=== PATIENT | male | born 1950 | race Native Hawaiian/Other Pacific Islander ===

== ENCOUNTER 2017-04-27 18:22 | Emergency (ER) | payer OTHER ==
--- NOTE | 2017-04-27 21:35 | XRay Report ---
FINAL REPORT PROCEDURE: XR RIBS UNILAT 2V RT TECHNIQUE: Unilateral rib radiographs, 2 views of the RIGHT ribs. HISTORY: RIGHT RIB PAIN COMPARISON: No prior studies are available for comparison. FINDINGS: Lungs: Normal. Pleural space: Normal. Pneumothorax: None. Bony thorax/ribs: Nondisplaced anterior 6th rib fracture IMPRESSION: Nondisplaced 6th rib fracture
--- NOTE | 2017-04-27 21:45 | XRay Report ---
FINAL REPORT PROCEDURE: XR SHOULDER 2 RT TECHNIQUE: Right shoulder radiographs including AP views in internal and external rotation and abduction. CPT 56462 HISTORY: RIGHT SHOULDER PAIN COMPARISON: No prior studies are available for comparison. FINDINGS: Fracture (s) and/or Dislocation(s): None . Joint space(s): Decreased subacromial space. Acromioclavicular spurring.. Soft tissues: Normal . Bone mineralization: Normal . Foreign bodies: None . IMPRESSION: Degenerative change. No fracture seen
[2017-04-27] MEDS ORDERED: BOOSTRIX IM ONE (22:43)
--- NOTE | 2017-04-27 22:48 | Emergency Department Report ---
Upper Extremity - HPI Chief Complaint: Fall Stated Complaint: RIB INJURY AT WORK/PAIN Time Seen by Provider: 04/27/17 22:34 Upper Extremity: Right Shoulder, Right Arm Occurred When: Today Severity: moderate Symptoms: Yes Pain with Movement, Yes Limited Range of Movement, Yes Weakness, Yes Laceration or Abrasion, No Deformity, No Numbness Other History: Patient comes into the ER today with complaints of right shoulder and right chest wall pain after he injured himself while at work today. 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 Patient does have an abrasion noted to right chest wall. Patient is unsure as to when his last tetanus shot was. ED Review of Systems ROS: Stated complaint: RIB INJURY AT WORK/PAIN Other details as noted in HPI Constitutional: denies: chills, fever Eyes: denies: eye pain, eye discharge, vision change ENT: denies: ear pain, throat pain Respiratory: denies: cough, shortness of breath, wheezing Cardiovascular: denies: chest pain, palpitations Endocrine: no symptoms reported Gastrointestinal: denies: abdominal pain, nausea, diarrhea Genitourinary: denies: urgency, dysuria Musculoskeletal: arthralgia, other (right lateral chest wall pain, right shoulder pain). denies: back pain, joint swelling Skin: other (abrasion to right posterior chest wall). denies: rash, lesions Neurological: denies: headache, weakness, paresthesias Psychiatric: denies: anxiety, depression Hematological/Lymphatic: denies: easy bleeding, easy bruising ED Past Medical Hx - Past Medical History Hx Hypertension: Yes Hx Diabetes: Yes - Surgical History Past Surgical History?: Yes Hx Open Heart Surgery: Yes - Social History Smoking Status: Never Smoker Substance Use Type: None - Medications Home Medications: Home Medications Medication Instructions Recorded Confirmed Last Taken Type Cyclobenzaprine [Flexeril] 10 mg PO BID PRN #20 tablet 04/27/17 Unknown Rx Naproxen [Naprosyn TAB] 500 mg PO BID #20 tablet 04/27/17 Unknown Rx traMADol [Ultram 50 MG tab] 50 mg PO Q4HR PRN #20 tablet 04/27/17 Unknown Rx Upper Extremity Exam - Exam General: Vital signs noted. No distress. Alert and acting appropriately. Head and Torso: Yes Chest/Lungs Abnormality (right posterior lateral chest wall pain and linear abrasion), No HEENT Abnormality, No Neck Tenderness, No Abdominal Tenderness Shoulder Exam: Yes Shoulder Tenderness, No Clavicle Tenderness, No Normal Range of Motion in Shoulder (Limited range of motion secondary to pain), No Shoulder Deformity, No AC Joint Tenderness Arm Exam: No Arm/Humerus Tenderness, No Arm Deformity Elbow: No Elbow Tenderness, No Normal Range of Motion in Elbow, No Elbow Deformity Forearm: No Forearm Tenderness, No Forearm Deformity, No Pain with Pronation, No Pain with Supination Wrist: Yes Normal ROM in Wrist, No Wrist Tenderness, No Wrist Deformity, No Snuffbox Tenderness, No Pain with Axial Thumb Compression Hand: Yes Normal ROM in Digit(s), No Hand Tenderness, No Hand Deformity, No Digit Tenderness, No Digit(s) Deformity, No Tendon Dysfunction CMS Exam: Yes Broken Skin (abrasion noted to the right posterior chest wall), Yes Normal Distal Pulses, Yes Normal Capillary Refill, Yes Normal Distal Sensation ED Course Vital Signs 04/27/17 19:47 Temperature 97.5 F L Pulse Rate 82 Respiratory 20 Rate Blood Pressure 144/93 O2 Sat by Pulse 98 Oximetry ED Medical Decision Making - Radiology Data Radiology results: report reviewed No acute fracture noted in right shoulder x-ray. X-ray of right ribs series reveals nondisplaced sixth rib fracture and no pneumothorax noted - Medical Decision Making Patient is nontoxic and hemodynamically stable. Patient was given updated tetanus immunization today in the ER. Patient placed in a sling to right arm. However for patient to orthopedics for further evaluation of shoulder and soft tissue injury. I will place patient on light duty if work will accommodate such. Patient is in agreement with treatment plan and patient is stable for discharge. Critical care attestation.: If time is entered above; I have spent that time in minutes in the direct care of this critically ill patient, excluding procedure time. ED Disposition Clinical Impression: Right shoulder pain, Right rib fracture, Abrasion of chest wall Disposition: TO HOME OR SELFCARE Is pt being admited?: No Does the pt Need Aspirin: No Condition: Good Instructions: Abrasion (ED), Rib Fracture (ED), Shoulder Sprain (ED) Prescriptions: Cyclobenzaprine [Flexeril] 10 mg PO BID PRN #20 tablet PRN Reason: Muscle Spasm Naproxen [Naprosyn TAB] 500 mg PO BID #20 tablet traMADol [Ultram 50 MG tab] 50 mg PO Q4HR PRN #20 tablet PRN Reason: Pain Referrals: PRIMARY CARE, [Primary Care Provider] - 3-5 Days DEVONTE VILLARREAL MD [Staff Physician] - 3-5 Days Forms: Work/School Release Form(ED) Time of Disposition: 22:52
[2017-04-27 23:30] VITALS: BP 176/80
== END 2017-04-27 23:26 | disposition home or self-care (01) ==
LOC: ED 18:22
DX: S22.31XA Fracture of one rib, right side, initial encounter for closed fracture (principal); S20.311A Abrasion of right front wall of thorax, initial encounter; M25.511 Pain in right shoulder; I10 Essential (primary) hypertension; E11.9 Type 2 diabetes mellitus without complications; W01.0XXA Fall on same level from slipping, tripping and stumbling without subsequent striking against object, initial encounter; Y93.89 Activity, other specified; Y92.89 Other specified places as the place of occurrence of the external cause; Y99.8 Other external cause status
CPT/HCPCS: 90471; 90715